=== PATIENT | male | born 1990 ===

== ENCOUNTER 2016-11-24 19:07 | Emergency (ER) | payer OTHER ==
[2016-11-24 19:24] VITALS: BP 123/69; PULSE 61; RESP 18; TEMP 98.3; O2SAT 100
--- NOTE | 2016-11-24 20:20 | ED PDOC ---
HPI: Wound Care - HPI Time Seen by Provider: 11/24/16 20:02 Chief Complaint (Nursing): Trauma Chief Complaint (Provider): finger laceration History Per: Patient History Of Present Illness: 26 y/o male presents with laceration to left hand 2nd digit. Patient states he was at work using a knife and accidentally cut tip of finger. Denies numbness/ weakness left upper extremity, limitation of movement. Last tetanus 3 years ago. Past Medical History Reviewed: Historical Data, Nursing Documentation, Vital Signs Vital Signs: Last Vital Signs Temp 98.3 F 11/24/16 19:22 Pulse 61 11/24/16 19:22 Resp 18 11/24/16 19:22 BP 123/69 11/24/16 19:22 Pulse Ox 100 11/24/16 19:22 - Medical History PMH: No Chronic Diseases - Family History Family History: States: No Known Family Hx - Allergies Allergies/Adverse Reactions: Allergies Allergy/AdvReac Type Severity Reaction Status Date / Time No Known Allergies Allergy Verified 11/24/16 19:21 Review of Systems ROS Statement: Except As Marked, All Systems Reviewed And Found Negative Musculoskeletal: Positive for: Hand Pain (left hand 2nd digit laceration) Physical Exam - Reviewed Nursing Documentation Reviewed: Yes Vital Signs Reviewed: Yes - Physical Exam Appears: Positive for: Well, Non-toxic, No Acute Distress Extremity: Positive for: Normal ROM, Other (1.5cm superficial laceration distal dorsal left hand 2nd digit extending medially. No active bleeding. No nail involvement. Distal NV, motor intact) Neurologic/Psych: Positive for: Alert, Oriented. Negative for: Motor/Sensory Deficits - ECG O2 Sat by Pulse Oximetry: 100 Procedure: Wound Repair - Time Performed Time Performed: 20:00 - Time Out Time Out: Side verified, Site verified, Patient ID confirmed, Sterile procedures obs. - Procedure Procedure: Wound Repair: finger laceration - Consent Obtained Consent obtained: Verbal - Indications Indication(s):: Laceration - Location Finger:: Left, Index Shape:: Linear Dimensions Length cm: 1.5cm Dimensions width cm: 0.2cm Depth:: Epidermis - Debris Debris:: None - Irrigated Irrigated with ml of normal saline: 150mL - Wound repair method [place]:: Tissue glue, Steri-strips - Muscle repiar layer closed with Muscle repair layer closed with:: Dressing applied, Tetanus up to date - Patient tolerated procedure Patient Tolerated Procedure:: Well Medical Decision Making Medical Decision Making: Patient educated on wound care, discharged with instructions to follow up PMD 2- 3 days. Return to ED for worsening/concerning symptoms. Disposition - Clinical Impression Clinical Impression: Finger laceration - Patient ED Disposition Is Patient to be Admitted: No Counseled Patient/Family Regarding: Diagnosis, Need For Followup - Disposition Referrals: [facility] [Outside] Disposition: Routine/Home Disposition Time: 20:21 Condition: STABLE Instructions: Laceration (ED), Skin Adhesive Care (ED), Steristrips (ED) Forms: [facility] ED School/Work Excuse Print Language: HUNGARIAN
== END 2016-11-24 20:50 | disposition home or self-care (01) ==
LOC: H.ER 19:07
DX: S61.211A Laceration without foreign body of left index finger without damage to nail, initial encounter (principal); W26.0XXA Contact with knife, initial encounter